=== PATIENT | male | born 1965 | race Caucasian/White ===

== ENCOUNTER 2019-03-02 23:43 | Inpatient (IN) | payer OTHER ==
[2019-03-03] MEDS ORDERED: ONDANSETRON 4 MG INJ IV (02:00)
[2019-03-03] MEDS ORDERED: NITROGLYCERIN (SL) 0.4 MG TAB SL (02:00)
[2019-03-03] MEDS ORDERED: NACL 0.9% 3 ML SYG IV (02:00)
[2019-03-03] MEDS: SOD CHLORIDE 0.9% 1,000 ML IV ×3 (04:01→21:42)
[2019-03-03] MEDS: METOPROLOL 25 MG TAB PO ×4 (04:01→20:12)
[2019-03-03 06:11] LABS: ADD MAN DIFF? NO
[2019-03-03 06:20] LABS: WHITE BLOOD COUNT 12.6 10^3/ul (4.8-10.8)
[2019-03-03 06:20] LABS: BASOPHILS % 0.2 % (0.0-2.0); EOSINOPHILS % 0.2 % (0.0-7.0); HEMOGLOBIN 15.1 g/dl (14.0-18.0); LYMPHOCYTES # 1.2 10^3/ul (0.8-2.9); LYMPHOCYTES % 9.1 % (15.0-51.0); MEAN CORPUSCULAR HEMOGLOBIN 30.6 pg (29.0-33.0); MEAN CORPUSCULAR HGB CONC 34.3 g/dl (32.0-37.0); MEAN CORPUSCULAR VOLUME 89.1 fl (82.0-101.0); MEAN PLATELET VOLUME 10.1 fl (7.4-10.4); NEUTROPHIL # 10.3 10^3/ul (1.6-7.5); PLATELET COUNT 221 10^3/UL (140-415); RED BLOOD COUNT 4.94 10^6/ul (4.70-6.10); RED CELL DISTRIBUTION WIDTH 12.6 % (11.5-14.5)
[2019-03-03 06:49] LABS: ALANINE AMINOTRANSFERASE 32 IU/L (13-69); ALBUMIN/GLOBULIN RATIO 1.29; ALKALINE PHOSPHATASE 83 IU/L (42-121); ANION GAP 9 (5-13); ASPARTATE AMINO TRANSFERASE 19 IU/L (15-46); BILIRUBIN,INDIRECT 1.2 mg/dl (0-1.1); BILIRUBIN,TOTAL 1.2 mg/dl (0.2-1.3); BLOOD UREA NITROGEN 11 mg/dl (7-20); CALCIUM 8.9 mg/dl (8.4-10.2); CARBON DIOXIDE 22 mmol/L (21-31); CHLORIDE 107 mmol/L (97-110); CHOL/HDL RATIO 5.1 RATIO; CHOLESTEROL 153 mg/dl (100-200); CREATINE KINASE 55 IU/L (23-200); CREATININE 0.74 mg/dl (0.61-1.24); Estimated GFR > 60 mL/min (>60); GLUCOSE 127 mg/dl (70-220); HDL CHOLESTEROL 30 mg/dl (28-71); LDL CHOLESTEROL,CALCULATED 112 mg/dl; MAGNESIUM 2.1 mg/dl (1.7-2.5); POTASSIUM 3.7 mmol/L (3.5-5.1); SODIUM 138 mmol/L (135-144); TOTAL PROTEIN 7.1 g/dl (6.1-8.1); TRIGLYCERIDES 53 mg/dl (0-149)
[2019-03-03 06:54] LABS: CK INDEX 0.7; TROPONIN-I < 0.012 ng/ml (0.000-0.120)
[2019-03-03 06:59] LABS: FREE T4 (FREE THYROXINE) 1.23 ng/dl (0.64-1.79)
[2019-03-03 07:19] LABS: THYROID STIMULATING HORMONE 0.405 MIU/L (0.465-4.680)
[2019-03-03 07:27] LABS: HEMOGLOBIN A1C 5.3 % (0-5.9)
[2019-03-03] MEDS: ASPIRIN 81 MG TAB PO (08:48)
[2019-03-03] MEDS: HEPARIN 5,000 UNIT/1 ML VIAL SC (08:54)
[2019-03-03] MEDS: IOHEXOL 300MG/ML 150 ML BTL (09:43)
[2019-03-03] MEDS: SOD CHLORIDE 0.9% 100 ML (09:43)
[2019-03-03] MEDS: morphine 2 MG INJ IV (10:56)
[2019-03-03 11:23] LABS: CREATINE KINASE 80 IU/L (23-200)
[2019-03-03 11:29] LABS: CK INDEX 1.4; CK-MB 1.11 ng/ml (0.0-2.4); TROPONIN-I < 0.012 ng/ml (0.000-0.120)
[2019-03-03] MEDS: CEFTRIAXONE 1 GM/50 ML (PMX) 50 ML IVPB (11:49)
[2019-03-03] MEDS: AZITHROMYCIN 500MG/NS (PMX) 250 ML IVPB (14:24)
[2019-03-03] MEDS: DIGOXIN 500 MCG INJ IV ×3 (15:19→22:44)
[2019-03-03] MEDS: ENOXAPARIN 100 MG/ML SYG SC ×2 (15:28→20:13)
[2019-03-03] MEDS: DILTIAZEM 25 MG INJ IV ×3 (15:53→19:50)
[2019-03-03] MEDS: ACETAMINOPHEN 325 MG TAB PO (19:00)
[2019-03-03 19:41] LABS: PROCALCITONIN 0.04 ng/mL (0.00-0.10)
[2019-03-04] MEDS: DILTIAZEM 25 MG INJ IV ×2 (00:31→10:21)
[2019-03-04] MEDS: ACETAMINOPHEN 325 MG TAB PO (00:31)
[2019-03-04] MEDS: SOD CHLORIDE 0.9% 1,000 ML IV ×3 (03:39→15:54)
[2019-03-04 06:44] LABS: ADD MAN DIFF? NO
[2019-03-04 06:46] LABS: BASOPHILS % 0.3 % (0.0-2.0); EOSINOPHILS # 0.1 10^3/ul (0.0-0.5); EOSINOPHILS % 0.7 % (0.0-7.0); HEMATOCRIT 47.6 % (42.0-52.0); HEMOGLOBIN 15.6 g/dl (14.0-18.0); LYMPHOCYTES # 2.3 10^3/ul (0.8-2.9); LYMPHOCYTES % 19.4 % (15.0-51.0); MEAN CORPUSCULAR HEMOGLOBIN 30.1 pg (29.0-33.0); MEAN CORPUSCULAR HGB CONC 32.8 g/dl (32.0-37.0); MEAN CORPUSCULAR VOLUME 91.7 fl (82.0-101.0); MONOCYTE # 1.2 10^3/ul (0.3-0.9); MONOCYTES % 9.8 % (0.0-11.0); NEUTROPHIL # 8.2 10^3/ul (1.6-7.5); NEUTROPHILS % 69.4 % (39.0-77.0); PLATELET COUNT 231 10^3/UL (140-415); RED BLOOD COUNT 5.19 10^6/ul (4.70-6.10); RED CELL DISTRIBUTION WIDTH 12.8 % (11.5-14.5)
[2019-03-04 06:46] LABS: WHITE BLOOD COUNT 11.8 10^3/ul (4.8-10.8)
[2019-03-04 07:14] LABS: CREATINE KINASE 34 IU/L (23-200)
[2019-03-04 07:18] LABS: ALANINE AMINOTRANSFERASE 30 IU/L (13-69); ALBUMIN 3.7 g/dl (3.3-4.9); ALBUMIN/GLOBULIN RATIO 1.08; ALKALINE PHOSPHATASE 89 IU/L (42-121); ANION GAP 9 (5-13); ASPARTATE AMINO TRANSFERASE 28 IU/L (15-46); BILIRUBIN,INDIRECT 0.9 mg/dl (0-1.1); BILIRUBIN,TOTAL 0.9 mg/dl (0.2-1.3); BLOOD UREA NITROGEN 11 mg/dl (7-20); CALCIUM 8.9 mg/dl (8.4-10.2); CARBON DIOXIDE 26 mmol/L (21-31); CHLORIDE 109 mmol/L (97-110); CHOL/HDL RATIO 4.7 RATIO; CHOLESTEROL 156 mg/dl (100-200); CREATININE 0.76 mg/dl (0.61-1.24); Estimated GFR > 60 mL/min (>60); GLUCOSE 97 mg/dl (70-220); HDL CHOLESTEROL 33 mg/dl (28-71); LDL CHOLESTEROL,CALCULATED 109 mg/dl; POTASSIUM 4.3 mmol/L (3.5-5.1); SODIUM 144 mmol/L (135-144); TOTAL PROTEIN 7.1 g/dl (6.1-8.1); TRIGLYCERIDES 68 mg/dl (0-149)
[2019-03-04 07:20] LABS: PHOSPHORUS 2.4 mg/dl (2.5-4.9)
[2019-03-04 07:20] LABS: MAGNESIUM 2.2 mg/dl (1.7-2.5)
[2019-03-04 07:24] LABS: B-TYPE NATRIURETIC PEPTIDE 533 PG/ML (0-125)
[2019-03-04 07:26] LABS: CK INDEX 1.1; CK-MB 0.37 ng/ml (0.0-2.4); TROPONIN-I < 0.012 ng/ml (0.000-0.120)
[2019-03-04 08:24] LABS: FREE T4 (FREE THYROXINE) 1.45 ng/dl (0.64-1.79)
[2019-03-04] MEDS: METOPROLOL 25 MG TAB PO (09:00)
[2019-03-04] MEDS: ENOXAPARIN 100 MG/ML SYG SC ×2 (09:02→20:37)
[2019-03-04] MEDS: CEFTRIAXONE 1 GM/50 ML (PMX) 50 ML IVPB (11:39)
[2019-03-04] MEDS: DIGOXIN 0.125 MG TAB PO (13:23)
[2019-03-04] MEDS: METOPROLOL 50 MG TAB PO ×2 (13:23→20:38)
[2019-03-04] MEDS: AZITHROMYCIN 500MG/NS (PMX) 250 ML IVPB (13:24)
[2019-03-05 07:00] LABS: ADD MAN DIFF? NO
[2019-03-05 07:08] LABS: BASOPHILS % 0.4 % (0.0-2.0); EOSINOPHILS # 0.2 10^3/ul (0.0-0.5); EOSINOPHILS % 1.8 % (0.0-7.0); HEMOGLOBIN 15.9 g/dl (14.0-18.0); LYMPHOCYTES # 2.3 10^3/ul (0.8-2.9); LYMPHOCYTES % 24.8 % (15.0-51.0); MEAN CORPUSCULAR HEMOGLOBIN 30.6 pg (29.0-33.0); MEAN CORPUSCULAR HGB CONC 33.8 g/dl (32.0-37.0); MEAN CORPUSCULAR VOLUME 90.6 fl (82.0-101.0); MEAN PLATELET VOLUME 10.3 fl (7.4-10.4); MONOCYTES % 10.4 % (0.0-11.0); NEUTROPHIL # 5.8 10^3/ul (1.6-7.5); NEUTROPHILS % 62.2 % (39.0-77.0); PLATELET COUNT 235 10^3/UL (140-415); RED BLOOD COUNT 5.19 10^6/ul (4.70-6.10); RED CELL DISTRIBUTION WIDTH 12.7 % (11.5-14.5)
[2019-03-05 07:08] LABS: WHITE BLOOD COUNT 9.3 10^3/ul (4.8-10.8)
[2019-03-05 07:33] LABS: ANION GAP 8 (5-13); BLOOD UREA NITROGEN 12 mg/dl (7-20); CALCIUM 9.1 mg/dl (8.4-10.2); CARBON DIOXIDE 24 mmol/L (21-31); CHLORIDE 108 mmol/L (97-110); CREATININE 0.81 mg/dl (0.61-1.24); Estimated GFR > 60 mL/min (>60); GLUCOSE 96 mg/dl (70-220); MAGNESIUM 2.3 mg/dl (1.7-2.5); PHOSPHORUS 2.7 mg/dl (2.5-4.9); SODIUM 140 mmol/L (135-144)
[2019-03-05] MEDS: METOPROLOL 50 MG TAB PO (08:09)
[2019-03-05] MEDS: ENOXAPARIN 100 MG/ML SYG SC ×2 (08:09→20:36)
[2019-03-05] MEDS: METOPROLOL (XL) 50 MG TAB PO ×2 (09:05→20:33)
[2019-03-05] MEDS: CEFTRIAXONE 1 GM/50 ML (PMX) 50 ML IVPB (12:00)
[2019-03-05] MEDS: AZITHROMYCIN 500MG/NS (PMX) 250 ML IVPB (12:57)
[2019-03-05] MEDS: DIGOXIN 0.125 MG TAB PO (12:58)
[2019-03-06 06:10] LABS: ADD MAN DIFF? NO
[2019-03-06 06:14] LABS: WHITE BLOOD COUNT 7.2 10^3/ul (4.8-10.8)
[2019-03-06 06:14] LABS: BASOPHILS % 0.6 % (0.0-2.0); EOSINOPHILS # 0.3 10^3/ul (0.0-0.5); EOSINOPHILS % 4.1 % (0.0-7.0); HEMATOCRIT 47.9 % (42.0-52.0); HEMOGLOBIN 16.2 g/dl (14.0-18.0); LYMPHOCYTES % 28.5 % (15.0-51.0); MEAN CORPUSCULAR HEMOGLOBIN 30.2 pg (29.0-33.0); MEAN CORPUSCULAR HGB CONC 33.8 g/dl (32.0-37.0); MEAN CORPUSCULAR VOLUME 89.2 fl (82.0-101.0); MONOCYTE # 0.6 10^3/ul (0.3-0.9); NEUTROPHIL # 4.1 10^3/ul (1.6-7.5); NEUTROPHILS % 57.4 % (39.0-77.0); PLATELET COUNT 268 10^3/UL (140-415); RED BLOOD COUNT 5.37 10^6/ul (4.70-6.10); RED CELL DISTRIBUTION WIDTH 12.5 % (11.5-14.5)
[2019-03-06 06:31] LABS: ANION GAP 10 (5-13); BLOOD UREA NITROGEN 13 mg/dl (7-20); CALCIUM 9.1 mg/dl (8.4-10.2); CARBON DIOXIDE 22 mmol/L (21-31); CHLORIDE 111 mmol/L (97-110); CREATININE 0.78 mg/dl (0.61-1.24); Estimated GFR > 60 mL/min (>60); GLUCOSE 113 mg/dl (70-220); POTASSIUM 4.2 mmol/L (3.5-5.1); SODIUM 143 mmol/L (135-144)
[2019-03-06] MEDS: METOPROLOL (XL) 100 MG TAB PO (09:08)
[2019-03-06] MEDS: ENOXAPARIN 100 MG/ML SYG SC (09:14)
[2019-03-06] MEDS: CEFTRIAXONE 1 GM/50 ML (PMX) 50 ML IVPB (12:11)
[2019-03-06] MEDS: AZITHROMYCIN 500MG/NS (PMX) 250 ML IVPB (12:26)
[2019-03-06] MEDS: DIGOXIN 0.125 MG TAB PO (13:25)
== END 2019-03-06 17:50 | disposition home or self-care (01) | DRG 195 ==
LOC: TEL 23:43
DX: J18.9 Pneumonia, unspecified organism (principal); I48.0 Paroxysmal atrial fibrillation; I10 Essential (primary) hypertension; E66.9 Obesity, unspecified; R91.1 Solitary pulmonary nodule; Z68.37 Body mass index [BMI] 37.0-37.9, adult
CPT/HCPCS: 71045; 71260; 80048; 80053; 80061; 82550; 82553; 83036; 83735; 83880; 84100; 84145; 84439; 84443; 84484; 85025; 87040-91; 87081; 93306